=== PATIENT | female | born 1995 | race American Indian/Alaskan Native ===

== ENCOUNTER 2017-06-06 20:19 | Emergency (ER) | payer OTHER ==
[2017-06-06] MEDS ORDERED: NACL 0.9% 1000 ML 1,000 ML IV ONE (20:44)
--- NOTE | 2017-06-06 20:52 | Emergency Department Report ---
ED General Adult HPI - General Chief complaint: Dyspnea/Respdistress Stated complaint: ACCELERATED HEART RATE Time Seen by Provider: 06/06/17 20:44 Source: patient, family, EMS Mode of arrival: Stretcher Limitations: No Limitations - History of Present Illness Initial comments: Patient is a 21-year-old female who presents with anxiety after she smoked weed about 2 hours ago. Patient states that she got really anxious and then she had some chest pain in the middle of her chest. There is a 3 out of 10 rest makes it better it is worse when she gets excited. Patient states that she feels her heart racing. She denies having any shortness of breath, vision changes, headache, leg swelling, vaginal bleeding, vaginal discharge Severity scale (0 -10): 10 - Related Data Home Medications Medication Instructions Recorded Confirmed Last Taken Bupropion HCl [Bupropion HCl Sr] 100 mg PO DAILY 06/06/17 06/06/17 06/05/17 lamoTRIgine [LaMICtal] 100 mg PO QDAY 06/06/17 06/06/17 06/05/17 Allergies Allergy/AdvReac Type Severity Reaction Status Date / Time No Known Allergies Allergy Verified 06/06/17 21:11 ED Review of Systems ROS: Stated complaint: ACCELERATED HEART RATE Other details as noted in HPI Constitutional: denies: chills, fever Eyes: denies: eye pain, eye discharge, vision change ENT: denies: ear pain, throat pain Respiratory: SOB with exertion. denies: cough, shortness of breath, wheezing Cardiovascular: chest pain, palpitations Endocrine: no symptoms reported Gastrointestinal: denies: abdominal pain, nausea, diarrhea Genitourinary: denies: urgency, dysuria, discharge Musculoskeletal: denies: back pain, joint swelling, arthralgia Skin: denies: rash, lesions Neurological: denies: headache, weakness, paresthesias Psychiatric: denies: anxiety, depression Hematological/Lymphatic: denies: easy bleeding, easy bruising ED Past Medical Hx - Past Medical History Previous Medical History?: Yes Additional medical history: Bipolar, Schizophrenia - Surgical History Past Surgical History?: No - Social History Smoking Status: Current Every Day Smoker Substance Use Type: Marijuana - Medications Home Medications: Home Medications Medication Instructions Recorded Confirmed Last Taken Type Bupropion HCl [Bupropion HCl Sr] 100 mg PO DAILY 06/06/17 06/06/1717 History lamoTRIgine [LaMICtal] 100 mg PO QDAY 06/06/17 06/06/17 06/05/17 History ED Physical Exam - General Limitations: No Limitations General appearance: appears intoxicated, anxious - Head Head exam: Present: atraumatic, normocephalic - Eye Eye exam: Present: normal appearance - ENT ENT exam: Present: mucous membranes moist - Neck Neck exam: Present: normal inspection - Respiratory Respiratory exam: Present: normal lung sounds bilaterally. Absent: respiratory distress - Cardiovascular Cardiovascular Exam: Present: regular rate, tachycardia. Absent: systolic murmur, diastolic murmur, rubs, gallop - GI/Abdominal GI/Abdominal exam: Present: soft, normal bowel sounds - Extremities Exam Extremities exam: Present: normal inspection - Back Exam Back exam: Present: normal inspection - Neurological Exam Neurological exam: Present: alert, oriented X3 - Psychiatric Psychiatric exam: Present: normal affect, normal mood - Skin Skin exam: Present: warm, dry, intact, normal color. Absent: rash ED Course Vital Signs 06/06/17 06/06/17 06/06/17 20:20 20:29 20:30 Temperature 99.0 F Pulse Rate 103 H 95 H Respiratory 20 18 Rate Blood Pressure 134/68 132/61 Blood Pressure 134/68 [Right] O2 Sat by Pulse 98 100 100 Oximetry 06/06/17 06/06/17 06/06/17 20:35 20:40 20:50 Temperature Pulse Rate 103 H 111 H 84 Respiratory 16 11 L Rate Blood Pressure 132/61 142/61 Blood Pressure [Right] O2 Sat by Pulse 100 100 Oximetry 06/06/17 06/06/17 06/06/17 21:15 21:20 21:30 Temperature Pulse Rate 86 83 87 Respiratory 17 12 21 Rate Blood Pressure 116/71 116/71 111/65 Blood Pressure [Right] O2 Sat by Pulse 100 100 99 Oximetry 06/06/17 21:40 Temperature Pulse Rate 89 Respiratory 18 Rate Blood Pressure 111/65 Blood Pressure [Right] O2 Sat by Pulse 100 Oximetry - Reevaluation(s) Reevaluation #1: 06/06/17 20:53 Evaluated patient I will have patient get a bolus of fluids Reevaluation #2: 06/06/17 22:02 Patient is feeling some intermittent chest pain I'll give patient ibuprofen and Tylenol and I will send the patient home. ED Medical Decision Making - Lab Data Lab Results 06/06/17 Range/Units 20:28 POC Glucose 121 H (70-105) - EKG Data 06/06/17 20:56 Patient EKG shows sinus tachycardia with occasional PVCs rate is 101. No ST segment elevation or T-wave inversion. - Medical Decision Making Chief medical diagnosis: [place] intoxication Differential medical diagnosis: Alcohol intoxication, anxiety, hypoglycemia Multiplanar care glucose, IV hydration because patient appears dehydrated and will monitor patient Critical care attestation.: If time is entered above; I have spent that time in minutes in the direct care of this critically ill patient, excluding procedure time. ED Disposition Clinical Impression: Marijuana smoker, Chest wall pain Marijuana intoxication Qualifiers: Complication of substance-induced condition: uncomplicated Qualified Code(s): F12.920 - Cannabis use, unspecified with intoxication, uncomplicated Disposition: DC-01 TO HOME OR SELFCARE Is pt being admited?: No Does the pt Need Aspirin: No Condition: Stable Instructions: Cannabis Abuse (ED), Chest Pain (ED) Time of Disposition: 22:01
[2017-06-06 21:55] VITALS: BP 111/65
[2017-06-06] MEDS ORDERED: MOTRIN PO ONE (22:00)
[2017-06-06] MEDS ORDERED: TYLENOL PO ONE (22:00)
== END 2017-06-06 22:38 | disposition home or self-care (01) ==
LOC: ED 20:19
DX: F12.920 Cannabis use, unspecified with intoxication, uncomplicated (principal); F41.9 Anxiety disorder, unspecified; F31.9 Bipolar disorder, unspecified; F20.9 Schizophrenia, unspecified; F17.200 Nicotine dependence, unspecified, uncomplicated
CPT/HCPCS: 82962; 93005; 93010; 96360; 99283; J7030